=== PATIENT | female | born 1940 | race Caucasian/White ===

== ENCOUNTER 2016-08-31 15:01 | Emergency (ER) | payer OTHER ==
[~2016-08-31] VITALS: Ht 167.6 cm; Wt 98.7 kg
[2016-08-31 15:06] VITALS: TEMP 36.8; Ht 167.6 cm; Wt 98.7 kg
[2016-08-31] MEDS ORDERED: XYLOCAINE 1%/SOD BICARB 20 ML VIAL INFIL STA (15:29)
[2016-08-31] MEDS ORDERED: DIPHTHERIA/TETANUS/PERTUSSIS 0.5 ML SYR/VIAL IM. ONE (15:30)
--- NOTE | 2016-08-31 15:53 | EMERGENCY ROOM VISIT NOTE ---
ED Visit Note First contact with patient: 15:19 I have seen and examined this patient with Dex Gerard and generally agree with the treatment plan as discussed. Allergies Coded Allergies: Niacin (Verified Allergy, Intermediate, Itching, 08/31/16) Pseudoephedrine (Verified Allergy, Intermediate, Palpitations, 08/31/16) Sulfa Antibiotics (Verified Allergy, Mild, Itching, 08/31/16) Vital Signs Date Time Temp Pulse Resp B/P (MAP) Pulse Ox O2 Delivery O2 Flow Rate FiO2 08/31/16 15:06 36.8 87 20 209/84 93 Room Air Departure Information Referrals No Doctor, Assigned (PCP) Patient Instructions My [facility]
[2016-08-31] MEDS ORDERED: ROSU5TAB PO (16:00)
[2016-08-31] MEDS ORDERED: CETI10TA10 PO (16:00)
[2016-08-31] MEDS ORDERED: AZEL30SP NAE (16:00)
[2016-08-31] MEDS ORDERED: DVN/160 PO (16:00)
[2016-08-31] MEDS ORDERED: OMEP20CA9 PO (16:00)
--- NOTE | 2016-08-31 16:42 | DIAGNOSTIC IMAGING REPORT ---
LEFT HAND MIN 3 VIEWS ROUTINE CLINICAL HISTORY: Left hand pain status post trauma COMPARISON: None. DISCUSSION: No acute fractures or dislocations are visualized. There are osteoarthritic changes, most pronounced the level the first carpal metacarpal joint. There are periarticular calcifications located at the level of the proximal distal to phalangeal joints of the little finger. IMPRESSION: 1. Osteoarthritic changes 2. No acute fractures or dislocations Electronically signed by: Otis Walker M.D. 08/31/2016 4:40 PM Dictated Date/Time: 08/31/2016 4:39 PM
--- NOTE | 2016-08-31 16:54 | EMERGENCY ROOM VISIT NOTE ---
ED Visit Note First contact with patient: 15:19 Chief Complaint: Facial Laceration History of Present Illness: This patient is a 75 year old female who presents to the Emergency Department via private vehicle for evaluation of their lower lip, and right hand laceration. Patient sustained the laceration while attempting to exit the vehicle at a local [place]. They report a moderate amount of bleeding initially. They report no loss of consciousness. They deny any headache, visual disturbance, nausea, vomiting, or neck pain. There is bilateral ear discomfort. Patient's tetanus status is not up-to-date. She denies pain. Allergies: As noted below PMH: Blood pressure, skin problems. Hysterectomy, hip replacement. SHx: Patient lives with . She denies tobacco use, admits to rare alcohol use. ROS: All pertinent positive and negative review of systems are appropriately documented in the History of Present Illness. Physical Exam: VITAL SIGNS - Vital signs and nursing notes were reviewed. Hypertensive GENERAL -75-year-old female appearing her stated age. Communicates well with provider and answers questions appropriately. SKIN - There is a 3 cm laceration noted to the mucosa of the bottom lip parallel to the vermilion border, with communication to an associated laceration inferiorly that is 2 cm in length. The edges gape apart with traction. There is minimal active bleeding appreciated. No deep structures including vessels, musculature, or bony structures are appreciated. HEAD - Normocephalic. No Soares's Sign or Raccoon's Eyes. No depressed skull fractures palpable. EYES - PERRL with EOMI bilaterally. Without subconjunctival hemorrhage. Palpebral conjunctiva pink and moist with no injection. EARS - No deformities of external structures noted on gross examination bilaterally. No hemotympanum present. No tympanic perforation noted. NOSE - Midline and without cyanosis. No epistaxis or clear watery discharge noted. Septum midline without deviation. No septal hematoma noted. No overlying ecchymosis noted. MOUTH/OROPHARYNX - Without perioral cyanosis. Tongue midline with equal elevation of palate bilaterally. No blood noted in the oropharynx. No tonsillar hypertrophy, erythema, or exudates noted. No dental fractures noted. NECK - FROM assessed. No tenderness to palpation over the cervical spinous processes. No cervical paraspinal muscle tenderness noted. LUNGS - Chest wall symmetric without accessory muscle use, intercostals retractions, or central cyanosis. Normal vesicular breath sounds CTA B/L. No wheezes, rales, or rhonchi appreciated. CARDIAC - RRR with S1/S2. No murmur, rubs, or gallops appreciated. EXTREMITIES - No gross deformities noted of the extremities. +5/5 strength noted in UE/LE bilaterally. There are a few superficial abrasions noted to the dorsal aspect of the right hand. Minimal tenderness. NEUROLOGIC - Cranial nerves II through XII grossly intact. Sensory intact to light touch throughout. PSYCH - A&Ox3 and cooperates fully with examiner. Pt is very pleasant and interacts well with examiner. IMAGING: LEFT HAND MIN 3 VIEWS ROUTINE CLINICAL HISTORY: Left hand pain status post trauma COMPARISON: None. DISCUSSION: No acute fractures or dislocations are visualized. There are osteoarthritic changes, most pronounced the level the first carpal metacarpal joint. There are periarticular calcifications located at the level of the proximal distal to phalangeal joints of the little finger. IMPRESSION: 1. Osteoarthritic changes 2. No acute fractures or dislocations Electronically signed by: Otis Walker M.D. 08/31/2016 4:40 PM Dictated Date/Time: 08/31/2016 4:[address] HEAD WITHOUT CONTRAST (CT) CLINICAL HISTORY: Head pain status post head trauma COMPARISON STUDY: No previous studies for comparison. TECHNIQUE: Axial CT of the brain is performed from the vertex to the skull base. IV contrast was not administered for this examination. A dose lowering technique was utilized adhering to the principles of ALARA. CT DOSE: 634.23 mGy.cm FINDINGS: No intra or extra-axial mass lesions are visualized. There is no CT evidence of acute cortical infarction. There is no evidence of midline shift. There is no acute hemorrhage. No calvarial fractures are visualized. There are patchy white matter hypodensities likely on a small vessel basis. There is no evidence of pathologic ventricular dilatation. There is no evidence of acute sinusitis IMPRESSION: No acute intracranial findings Electronically signed by: Otis Walker M.D. 08/31/2016 5:07 PM Dictated Date/Time: 08/31/2016 5:06 PM ED Course: Patient was seen and evaluated by myself. Patient had no focal neurological deficits. Patient's exam is otherwise unremarkable. Patient reports no headaches , visual disturbances, nausea, vomiting, or over-lethargy. Risks and benefits of performing primary wound closure versus no repair were discussed with the patient who verbalizes understanding. Verbal consent was obtained prior to performing the procedure. 3 cc of 1% buffered lidocaine was used to anesthetize the 2 separate laceration. The wound was cleansed and prepped in the typical sterile fashion utilizing normal saline and Betadine. The wound was sterilely draped. Once proper anesthetization was established, the wound was further examined and demonstrated no deep involvement, but there was a communicating laceration with the outside of the lip. There are no intraoral lacerations. The wound was copiously irrigated with normal saline. The wound was closed using 4 simple, 6-0 Vicryl sutures with the wound edges being well approximated. Patient tolerated the procedure well. No complications were met. The wound was cleansed and dressed with a Bacitracin dressing. Patient received their Adacel vaccination. Patient educated on worrisome symptoms for return visit to the Emergency Department. Patient discharged to home in good condition. She'll be given amoxicillin for her infection prophylaxis. CT head negative. X-ray negative. She is to follow-up with family doctor. In the evaluation and treatment of this patient, the following differential diagnoses were considered: Concussion, Contrecoup Injury, Brain Tumor, Depression, Encephalitis, Hypothyroidism, Meningitis, CVA, TIA, Migraine, Cluster Headache, Intracranial Abnormality, Intracranial Hemorrhage, Subdural Hematoma, Subarachnoid Hemorrhage, Hydrocephalus. Current/Historical Medications Scheduled Amoxicillin (Amoxicillin), 500 MG PO TID Azelastine Hcl-Fluticasone Pro (Dymista), 1 SPRY FRANCISCO BID Cetirizine Hcl (Zyrtec), 10 MG PO DAILY Omeprazole (Prilosec), 20 MG PO DAILY Rosuvastatin Calcium (Crestor), 5 MG PO DAILY Valsartan (Diovan), 160 MG PO DAILY Allergies Coded Allergies: Niacin (Verified Allergy, Intermediate, Itching, 08/31/16) Pseudoephedrine (Verified Allergy, Intermediate, Palpitations, 08/31/16) Sulfa Antibiotics (Verified Allergy, Mild, Itching, 08/31/16) Vital Signs Date Time Temp Pulse Resp B/P (MAP) Pulse Ox O2 Delivery O2 Flow Rate FiO2 08/31/16 17:57 93 20 171/84 97 08/31/16 15:06 36.8 87 20 209/84 93 Room Air Medications Administered Medications (Trade) Dose Ordered Sig/Paulette Route Start Time Stop Time Status Last Admin Dose Admin Diphtheria/ Pertussis/Tetanus Vacc (Adacel Inj) 0.5 ml ONCE ONCE IM. 08/31/16 15:30 08/31/16 15:31 DC 08/31/16 16:09 0.5 ML Amoxicillin (Amoxil 250MG Home Pack) 1 homepack UD STAT PO 08/31/16 17:44 08/31/16 17:46 DC 08/31/16 17:49 1 HOMEPACK Departure Information Impression Primary Impression: Fall Additional Impressions: Lip laceration Abrasion of hand, left Dispostion Home / Self-Care Condition GOOD Prescriptions Amoxicillin (Amoxicillin) 500 Mg Cap 500 MG PO TID for 4 Days, #12 TABS Prov: Dex Gerard PA-C 08/31/16 Referrals No Doctor, Assigned (PCP) Patient Instructions My [facility] Additional Instructions Discharge Instructions: You have received dissolvable stitches on your lip. You have been prescribed Amoxicillin (500mg every 8 hours for 5 days) to be taken as prescribed. This is an antibiotic. All antibiotics have the potential to cause diarrhea. Stop this medication and contact a medical provider if you were to develop any significant adverse side effects including: wheezing, shortness of breath, passing out, vomiting, or a diffuse rash. Always take antibiotics as directed and COMPLETE the ENTIRE course regardless of the improvement of your symptoms. Look for signs of infection of the wound including: increased pain, swelling, foul discharge, streaking, or increased temperature. If any of these are noticed you should return to the Emergency Department for further assessment and treatment. As with any laceration you may have received nerve damage to the surrounding tissues. This damage may or may not be permanent. You should keep the area covered with sunscreen for the first 6 months to 1 year when at risk for exposure to help minimize scarring. You can also use scar reducing creams or Vitamin E oil to help minimize scarring. Please follow-up with your family doctor regarding today's visit. I have listed the x-ray and CAT scan below of which she may review with your family doctor. Return to the emergency department if your symptoms worsen despite treatment course outlined above. CT HEAD WITHOUT CONTRAST (CT) CLINICAL HISTORY: Head pain status post head trauma COMPARISON STUDY: No previous studies for comparison. TECHNIQUE: Axial CT of the brain is performed from the vertex to the skull base. IV contrast was not administered for this examination. A dose lowering technique was utilized adhering to the principles of ALARA. CT DOSE: 634.23 mGy.cm FINDINGS: No intra or extra-axial mass lesions are visualized. There is no CT evidence of acute cortical infarction. There is no evidence of midline shift. There is no acute hemorrhage. No calvarial fractures are visualized. There are patchy white matter hypodensities likely on a small vessel basis. There is no evidence of pathologic ventricular dilatation. There is no evidence of acute sinusitis IMPRESSION: No acute intracranial findings LEFT HAND MIN 3 VIEWS ROUTINE CLINICAL HISTORY: Left hand pain status post trauma COMPARISON: None. DISCUSSION: No acute fractures or dislocations are visualized. There are osteoarthritic changes, most pronounced the level the first carpal metacarpal joint. There are periarticular calcifications located at the level of the proximal distal to phalangeal joints of the little finger. IMPRESSION: 1. Osteoarthritic changes 2. No acute fractures or dislocations Electronically signed by: Otis Walker M.D. 08/31/2016 4:40 PM Dictated Date/Time: 08/31/2016 4:39 PM Problem Qualifiers
--- NOTE | 2016-08-31 17:08 | DIAGNOSTIC IMAGING REPORT ---
CT HEAD WITHOUT CONTRAST (CT) CLINICAL HISTORY: Head pain status post head trauma COMPARISON STUDY: No previous studies for comparison. TECHNIQUE: Axial CT of the brain is performed from the vertex to the skull base. IV contrast was not administered for this examination. A dose lowering technique was utilized adhering to the principles of ALARA. CT DOSE: 634.23 mGy.cm FINDINGS: No intra or extra-axial mass lesions are visualized. There is no CT evidence of acute cortical infarction. There is no evidence of midline shift. There is no acute hemorrhage. No calvarial fractures are visualized. There are patchy white matter hypodensities likely on a small vessel basis. There is no evidence of pathologic ventricular dilatation. There is no evidence of acute sinusitis IMPRESSION: No acute intracranial findings Electronically signed by: Otis Walker M.D. 08/31/2016 5:07 PM Dictated Date/Time: 08/31/2016 5:06 PM
[2016-08-31] MEDS ORDERED: AMOXICILLIN HOME PACK 250 MG/TAB PO STA (17:44)
[2016-08-31] MEDS ORDERED: AMX500 PO (17:48)
[2016-08-31 17:57] VITALS: BP 171/84; PULSE 93; O2SAT 97
== END 2016-08-31 17:58 | disposition home or self-care (01) ==
LOC: C.EDB 15:05 → C.EDD 17:58
DX: S01.511A Laceration without foreign body of lip, initial encounter (principal); S60.512A Abrasion of left hand, initial encounter; X58.XXXA Exposure to other specified factors, initial encounter; Z90.710 Acquired absence of both cervix and uterus; Z96.649 Presence of unspecified artificial hip joint; Z23 Encounter for immunization